=== PATIENT | female | born 1960 | race African-American/Black ===

== ENCOUNTER 2023-06-25 13:13 | Emergency (ER) | payer SELFPAY ==
[~2023-06-25] VITALS: Ht 165.1 cm; Wt 55.0 kg
[2023-06-25 13:39] VITALS: BP 95/61; PULSE 82; RESP 16; TEMP 98.1; O2SAT 96
[2023-06-25] MEDS ORDERED: BACITRACIN ZINC OINT UDPKT TOP ONE (14:15)
[2023-06-25] MEDS ORDERED: FLUORESCEIN SODIUM 1MG/STRIP LEFTEYE ONE (14:30)
[2023-06-25] MEDS ORDERED: TETRACAINE 0.5% OPHTH DROPS 4ML LEFTEYE ONE (14:30)
[2023-06-25 14:58] LABS: HEMATOCRIT 35.1 % (36.0-48.0); HEMOGLOBIN 10.9 g/dL (12.0-16.0); MEAN CORPUSCULAR HEMOGLOBIN 25.2 pg (28.0-32.0); MEAN CORPUSCULAR HGB CONC 31.1 g/dL (31.0-37.0); MEAN CORPUSCULAR VOLUME 81.2 fL (81.0-99.0); PLATELET 266 x1000/uL (130-400); RED BLOOD CELL COUNT 4.32 mill/uL (4.2-5.4); RED CELL DISTRIBUTION WIDTH 16.7 % (11.6-14.6); WHITE BLOOD COUNT 10.9 x1000/uL (4.5-11.0)
[2023-06-25 15:05] LABS: CHLORIDE 102 mEq/L (98-107); INDEX HEMOLYSI 1 (1-3); INDEX ICTERIC 1 (1-4); INDEX LIPEMIC 1 (1-3); SODIUM 134 mEq/L (136-145)
[2023-06-25 15:13] LABS: ALANINE AMINOTRANSFERASE 21 IU/L (13-61); ALBUMIN 3.3 g/dL (3.4-5.0); ASPARTATE AMINOTRANSFERASE 17 IU/L (15-37); BILIRUBIN TOTAL 0.4 mg/dL (0.1-1.0); CALCIUM 8.7 mg/dL (8.5-10.1); CARBON DIOXIDE 25 mEq/L (21-32); GLUCOSE 88 mg/dL (70-105); PROTEIN TOTAL 7.8 g/dL (6.0-8.3); UREA NITROGEN BLOOD 34 mg/dL (7-21)
[2023-06-25] MEDS ORDERED: POTASSIUM CHLORIDE 20MEQ/PACKET PO NR (15:45)
[2023-06-25] MEDS ORDERED: OFLO5DRO4 LEFT EAR (19:54)
== END 2023-06-26 01:40 | disposition home or self-care (01) ==
LOC: ER 13:22
DX: M79.10 Myalgia, unspecified site (principal); H92.02 Otalgia, left ear; J45.909 Unspecified asthma, uncomplicated; E11.9 Type 2 diabetes mellitus without complications; I10 Essential (primary) hypertension
CPT/HCPCS: 36415; 70481; 80053; 85027; 99284